=== PATIENT | female | born 2005 | race Caucasian/White ===

== ENCOUNTER 2025-05-03 21:09 | Emergency (ER) | payer OTHER, SELFPAY ==
[2025-05-03 21:36] VITALS: BP 141/77; PULSE 111; RESP 16; TEMP 36.6; O2SAT 96
--- NOTE | 2025-05-03 22:18 | PC.NURSE ---
Pt up to triage desk stating that they are not waiting and leaving to go to another hospital.
== END 2025-05-03 23:40 | disposition left against medical advice (07) ==
DX: M54.9 Dorsalgia, unspecified (principal)
CPT/HCPCS: 99199